=== PATIENT | female | born 1995 | race African-American/Black ===

== ENCOUNTER 2017-03-31 01:16 | Emergency (ER) | payer OTHER ==
--- NOTE | 2017-03-31 01:38 | ED Physician Documentation ---
General Adult - HISTORIAN Historian: patient - HPI Chief Complaint: General Adult Additional Information: fever cough sore throat and pelvic pain Onset: days ago (2dago) Timing: still present, worse Severity: moderate Further Comments: no - ROS CONST: fever, recent illness CVS/RESP: cough - PAST HX Past History: none Allergies/Adverse Reactions: Allergies Allergy/AdvReac Type Severity Reaction Status Date / Time No Known Allergies Allergy Verified 03/31/17 01:44 Home Medications: Ambulatory Orders Medication Instructions Recorded Unobtainable [Unobtainable] 03/31/17 - SOCIAL HX Smoking History: non-smoker Alcohol Use: occasionally Drug Use: marijuana - FAMILY HX Family History: No - VITAL SIGNS Vital Signs: Vital Signs Temp Pulse Resp BP Pulse Ox 102/67 10/10/15 16:18 - REVIEWED ASSESSMENTS Nursing Assessment Reviewed: Yes Vitals Reviewed: Yes Progress - Progress Progress: pt phone rang during interview. i told her i would come back when she finished w/phone and stepped out. when I went back in she was gone. her flu titer was neg the urine was neg xc sp gr greater than 1030 and ther was 1 plus leukocytes. the hx was not finished job to fact lpt apparently left after phone call. nurse reported vs satis t=98.6 hr = 93 resp = 14 jb=595/73. spo2 = 98 rm air General Adult Physical Exam - PHYSICAL EXAM GENERAL APPEARANCE: exam not completed-pt left after phone call w/o being examined NEURO: oriented X3 Discharge Clincal Impression: un known dx-pt left ama Referrals: Primary Doctor,No [Primary Care Provider] - 2 Days Comments: incomplete exam Decision to Admit: NO Decision Time: 01:50
[2017-03-31 01:54] VITALS: BP 115/73
[2017-03-31 07:04] LABS: APPEARANCE,URINE CLOUDY (CLEAR); COLOR,URINE AMBER (YELLOW); OCCULT BLOOD,URINE 2+ (NEGATIVE); UROBILINOGEN URINE 0.2 Eu (0.2-1.0)
== END 2017-03-31 01:45 ==
LOC: ED 01:16
DX: Z53.21 Procedure and treatment not carried out due to patient leaving prior to being seen by health care provider (principal)
CPT/HCPCS: 81002; 87070; 87086; 87400; 87880; 99281